=== PATIENT | female | born 1965 | race Caucasian/White ===

== ENCOUNTER 2018-02-11 08:48 | Observation (INO) | payer OTHER ==
[~2018-02-11] VITALS: Ht 167.6 cm; Wt 96.2 kg
[2018-02-11] MEDS ORDERED: ASPIRIN 81 MG CHEW TAB PO ONE (09:15)
[2018-02-11 09:18] LABS: BASOPHILS % 0.6 % (0.0-1.0); EOSINOPHILS # (AUTO) 0.1 (0.0-0.4); EOSINOPHILS % 1.9 % (0.0-6.0); HEMATOCRIT 42.4 % (34.2-44.1); HEMOGLOBIN 14.7 g/dL (12.0-16.0); LYMPHOCYTES # (AUTO) 1.3 (1.0-3.2); LYMPHOCYTES % 27.2 % (18.0-39.1); MEAN CORPUSCULAR HEMOGLOBIN 34.8 pg (28-32); MEAN CORPUSCULAR HGB CONC 34.7 g/dL (31-35); MEAN CORPUSCULAR VOLUME 100.5 fL (81-99); MONOCYTES # (AUTO) 0.3 (0.2-0.8); MONOCYTES % 6.5 % (4.4-11.3); NEUTROPHILS % 63.8 % (38.7-80.0); PLATELET COUNT 162 x10e3/uL (140-360); RED BLOOD COUNT 4.22 x10e6/uL (3.6-5.1); RED CELL DISTRIBUTION WIDTH 13.4 % (11.7-14.4)
[2018-02-11 09:22] LABS: INR 1.09; PROTHROMBIN TIME 13.3 seconds (11.9-14.5)
[2018-02-11 09:23] LABS: PARTIAL THROMBOPLASTIN TIME 26.8 seconds (23.8-35.5)
[2018-02-11 09:31] LABS: ALBUMIN 4.1 g/dL (3.5-5.0); ALBUMIN/GLOBULIN RATIO 1.2 (0.8-2.0); ANION GAP 11.9 mmol/L (8-16); CALCIUM 9.8 mg/dL (8.4-10.2); CREATININE, SERUM 0.98 mg/dL (0.57-1.11); POTASSIUM 3.9 mmol/L (3.5-5.1)
--- NOTE | 2018-02-11 09:55 | Diagnostic Imaging Report ---
PROCEDURE: CHEST SINGLE (PORTABLE) COMPARISON: None. INDICATIONS: CHEST PAIN, COPD FINDINGS: LUNGS: No consolidations or edema. PLEURA: No effusions or pneumothorax. HEART \T\ MEDIASTINUM: The heart is within normal size-limits. BONES \T\ SOFT TISSUES: No acute findings. CONCLUSION: No acute thoracic abnormality. Liang Rush D.O. Dictated by: Liang Rush D.O. on 02/11/2018 at 9:58 Electronically approved by: Liang Rush D.O. on 02/11/2018 at 9:58
[2018-02-11] MEDS ORDERED: NICOTINE 14 MG/EA PATCH TOP STA (11:01)
[2018-02-11 11:27] LABS: BILIRUBIN,URINE NEGATIVE (NEGATIVE); CLARITY,URINE SL CLOUDY (CLEAR); COLOR,URINE YELLOW (YELLOW); KETONES,URINE NEGATIVE (NEGATIVE); LEUKOCYTE ESTERASE ,URINE NEGATIVE (NEGATIVE); NITRITE,URINE NEGATIVE (NEGATIVE); PROTEIN,URINE DIPSTICK NEGATIVE (NEGATIVE); URINE UROBILINOGEN 0.2 mg/dL (0.2 - 1)
[2018-02-11 11:40] LABS: BACTERIA,URINE MODERATE /HPF; EPITHELIAL CELLS,URINE MODERATE /LPF; RBC,URINE 0-5 /HPF (0-5); WBC,URINE (MAN) 0-5 /HPF (0-5)
--- OUTSIDE RECORDS SUMMARY | 2018-02-11 12:31 | XMS REPORT ---
Author Author [facility] Address Unknown Phone Unavailable Care Team Providers Care Admissions Advisor Name Role Phone CAROLINE MATIAS Unavailable Unavailable Problems This patient has no known problems. Allergies, Adverse Reactions, Alerts This patient has no known allergies or adverse reactions. Medications This patient has no known medications. Results Test Description Test Time Test Comments Text Results Atomic Results Result Comments CHEST SINGLE (PORTABLE) [place] [address] Patient Name: LISA HURTADO MR #: [id number] : 1965 Age/Sex: 52/F Req #: [id number] Adm Physician: Ordered by: CAROLINE MATIAS MD Report #: [id number] Location: ER Room/Bed: Procedure: [id number] DX/CHEST SINGLE (PORTABLE) Exam Date: 02/11/18 Exam Time: 919 REPORT STATUS: Signed PROCEDURE: CHEST SINGLE (PORTABLE) COMPARISON: None. INDICATIONS: CHEST PAIN, COPD FINDINGS: LUNGS: No consolidations or edema. PLEURA: No effusions or pneumothorax. HEART T MEDIASTINUM: The heart is within normal size-limits. BONES T SOFT TISSUES: No acute findings. CONCLUSION: No acute thoracic abnormality. Az Cosme D.O. Dictated by: Az Cosme D.O. on 02/11/2018 at 9:58 Electronically approved by: Az Cosme D.O. on 02/11/2018 at 9:58 Dictated By: AZ COSME DO 7 Transcribed By: RONNY on 02/11/18957 COPY TO: CAROLINE MATIAS MD
[2018-02-11] MEDS ORDERED: MORPHINE SULFATE 2 MG/ML SYR IV PRN (13:30)
[2018-02-11] MEDS ORDERED: ONDANSETRON HCL 4 MG ORAL DISINTEGRATING TAB PO PRN (13:45)
[2018-02-11] MEDS ORDERED: SYMBICORT 16010.2 GM INH (14:06)
--- NOTE | 2018-02-11 15:12 | Consultation ---
DATE OF CONSULTATION: February 11, 2018 CARDIOLOGY CONSULTATION REQUESTING PHYSICIAN: Dr. Rogers. REASON FOR CONSULTATION: Chest pain. HISTORY OF PRESENT ILLNESS: This is a 52-year-old woman with a history of COPD, who presents with complaints of chest pain. The patient denies any history of heart disease. She states she was in her usual state of health until 4 weeks ago when she felt like she was coming down with a cold. She described symptoms of weakness and malaise. The following week, she started experiencing dull chest pain. She initially reported no aggravating or alleviating factors. The pain did not radiate. However, today in the ER after administration of morphine, she noted that the pain was worse with deep inspiration. She denied any edema, orthopnea, PND or palpitations otherwise. She does not regularly exercise. REVIEW OF SYSTEMS: Negative except as per HPI. PAST MEDICAL HISTORY: COPD. PAST SURGICAL HISTORY: None. ALLERGIES: PLEASE SEE EMR. MEDICATIONS: Please see medication list. SOCIAL HISTORY: She endorses smoking a pack and a half a day for the last 40 years. She denies any alcohol or illicit drugs. FAMILY HISTORY: Noncontributory. PHYSICAL EXAMINATION VITAL SIGNS: Temperature 98.5 degrees, pulse 56, respiratory rate 18, blood pressure 111/73, oxygen saturation 94%. GENERAL: Obese woman in no acute distress. Awake and alert. HEENT: Normocephalic, atraumatic. Pupils equal, no scleral icterus. NECK: Supple. No thyromegaly or cervical lymphadenopathy, no carotid bruits. LUNGS: Clear to auscultation bilaterally. No wheezes or crackles. CARDIOVASCULAR: Normal rate, regular rhythm. No murmur. Normal S1 and S2. ABDOMEN: Soft, nontender. EXTREMITIES: No edema. NEURO: Nonfocal exam. LABS: WBC 4.63, hemoglobin 14.7, hematocrit 42.4, platelets 162. Sodium 140, potassium 3.9, chloride 105, CO2 27, BUN 6, creatinine 0.98. Troponin 0.006. BNP less than 10. INR 1.09. UA with trace blood and moderate bacteria. CHEST X-RAY: No acute thoracic abnormality. EKG: Normal sinus rhythm. Normal ECG. IMPRESSION 1. Atypical chest pain. 2. Tobacco abuse. RECOMMENDATIONS: Trend cardiac enzymes. Obtain echocardiogram. Given patient's risk factors, ischemic evaluation is warranted with a treadmill nuclear stress test. However, her symptoms are more consistent with pleurisy or pericarditis. Check a CRP. Thank you for this consult. We will continue to follow. Job#: [id number] EV
[2018-02-11 16:16] VITALS: BP 118/66
[2018-02-11] MEDS ORDERED: HYDRALAZINE HCL 20 MG/ML VIAL IV PRN (17:00)
[2018-02-11] MEDS ORDERED: ACETAMINOPHEN 325 MG SUPP PR PRN (17:00)
[2018-02-11] MEDS ORDERED: ACETAMINOPHEN 325 MG TAB PO PRN (17:00)
[2018-02-11 17:06] VITALS: BP 118/66
[2018-02-11 17:14] VITALS: BP 118/66
[2018-02-11] MEDS: ENOXAPARIN SOD INJ 40 MG/0.4 ML SYR SC SCH (17:54)
[2018-02-11] MEDS: METOCLOPRAMIDE HCL 10 MG/2ML VIAL IV SCH (17:54)
[2018-02-11 19:55] VITALS: BP 137/64
[2018-02-12] MEDS: METOCLOPRAMIDE HCL 10 MG/2ML VIAL IV SCH ×4 (00:13→16:54)
[2018-02-12 00:50] VITALS: BP 101/56
[2018-02-12 03:53] LABS: BASOPHILS % 0.6 % (0.0-1.0); EOSINOPHILS # (AUTO) 0.1 (0.0-0.4); EOSINOPHILS % 2.7 % (0.0-6.0); HEMATOCRIT 39.4 % (34.2-44.1); HEMOGLOBIN 13.5 g/dL (12.0-16.0); LYMPHOCYTES # (AUTO) 1.6 (1.0-3.2); LYMPHOCYTES % 48.9 % (18.0-39.1); MEAN CORPUSCULAR HEMOGLOBIN 34.7 pg (28-32); MEAN CORPUSCULAR HGB CONC 34.3 g/dL (31-35); MEAN CORPUSCULAR VOLUME 101.3 fL (81-99); MONOCYTES # (AUTO) 0.3 (0.2-0.8); MONOCYTES % 7.9 % (4.4-11.3); NEUTROPHILS # (AUTO) 1.3 (2.1-6.9); NEUTROPHILS % 39.6 % (38.7-80.0); PLATELET COUNT 150 x10e3/uL (140-360); RED BLOOD COUNT 3.89 x10e6/uL (3.6-5.1); RED CELL DISTRIBUTION WIDTH 13.2 % (11.7-14.4)
[2018-02-12 04:16] LABS: ANION GAP 10.1 mmol/L (8-16); BLOOD UREA NITROGEN 9 mg/dL (7-26); BUN/CREATININE RATIO 10 (6-25); CALCIUM 9.2 mg/dL (8.4-10.2); CARBON DIOXIDE 28 mmol/L (22-29); CHLORIDE 106 mmol/L (98-107); CHOL/HDL RATIO 4.4 (3.0-3.6); CHOLESTEROL 177 MD/DL (0-199); EST GLOMERULAR FILTRATION RATE > 60 ML/MIN (60-); GLUCOSE 90 mg/dL (74-118); HDL CHOLESTEROL 40 MG/DL (40-60); LDL CHOLESTEROL 107 MG/DL (60-130); POTASSIUM 4.1 mmol/L (3.5-5.1); SODIUM 140 mmol/L (136-145); TRIGLYCERIDES 150 MG/DL (0-149)
[2018-02-12 04:23] LABS: CREATINE KINASE MB 0.8 ng/mL (0-5.0)
[2018-02-12 04:25] LABS: B-TYPE NATRIURETIC PEPTIDE2 < 10.0 pg/mL (0-100)
[2018-02-12 04:38] LABS: FREE T4 (FREE THYROXINE) 0.79 ng/dL (0.9-1.8); THYROID STIMULATING HORMONE 8.279 uIU/mL (0.350-4.940)
[2018-02-12 05:00] VITALS: BP 89/54
[2018-02-12 08:00] VITALS: BP 100/60
[2018-02-12] MEDS ORDERED: PANTOPRAZOLE 40 MG 10ML VIAL IV SCH (09:00)
[2018-02-12] MEDS ORDERED: ASPIRIN 325 MG TAB EC PO SCH (09:00)
[2018-02-12 11:34] VITALS: BP 100/60
--- NOTE | 2018-02-12 13:32 | Cardiology Report ---
DATE OF STUDY: February 12, 2018 NUCLEAR STRESS REPORT PROCEDURE TITLE: Rest/stress single isotope SPECT imaging with exercise stress and gated SPECT imaging. INDICATIONS: Chest pain. PROCEDURE: Patient performed treadmill exercise using a Ezra protocol, exercising for 5 minutes 57 seconds to stage 2 and completing an estimated work load of 7 metabolic equivalents (METs). The test was terminated due to fatigue. The heart rate was 76 beats a minute at rest and increased to 142 beats a minute at peak exercise, which was 86% of maximum predicted heart rate. The rest blood pressure was 85/69, increased to 155/70 mmHg, which is a normal response. The patient did not develop any symptoms other than fatigue during the procedure. The resting electrocardiogram demonstrated sinus rhythm. There were no ST segment changes consistent with myocardial ischemia. Myocardial perfusion imaging was performed at rest following the injection of 27.2 mCi of tetrofosmin. At peak pharmacologic effect, the patient was injected with 33.8 mCi of tetrofosmin and exercise was continued for 1 minute. Gated post rest tomographic imaging was performed. FINDINGS: The overall quality of study is fair. Attenuation artifact was present. Left ventricular cavity was noted to be normal size on the rest and stress studies. SPECT images demonstrate homogenous tracer distribution throughout the myocardium. The gated SPECT imaging reveals normal myocardial thickening and wall motion. Left ventricular ejection fraction was calculated to be 59%. IMPRESSION: Normal clinical hemodynamically ECG exercise stress test. Myocardial perfusion imaging is normal. Overall left ventricular systolic function was normal without regional wall motion abnormalities. Job#: [id number] SKYLAR
[2018-02-12] MEDS ORDERED: IBUPROFEN400 MG PO (14:18)
[2018-02-12] MEDS ORDERED: COLCRYS0.6 MG PO (14:19)
[2018-02-12] MEDS ORDERED: IBUPROFEN 400 MG TAB PO PRN ×2 (16:15→16:30)
--- NOTE | 2018-02-12 16:31 | Progress Note ---
DATE: February 12, 2018 CARDIOLOGY PROGRESS NOTE SUBJECTIVE: Patient denies shortness of breath. She reports her chest pain is worsened by lying flat. nuclear stress test. OBJECTIVE VITAL SIGNS: Temperature 98 degrees, pulse 63, respiratory rate 16, blood pressure 100/60, oxygen saturation 95% on room air. GENERAL: Obese woman in no acute distress. Awake and alert. LUNGS: Clear to auscultation bilaterally. No wheezes or crackles. CARDIOVASCULAR: Normal rate, regular rhythm. No murmur. Normal S1 and S2. ABDOMEN: Soft, nontender. EXTREMITIES: No edema. NEUROLOGIC: Nonfocal exam. LABS: WBC 3.29, hemoglobin 13.5, hematocrit 39.4, platelets 150. Sodium 140, potassium 4.1, chloride 106, CO2 28, BUN 9, creatinine 0.9. Troponin 0.009. BNP less than 10. CRP 12.1. TELEMETRY: Normal sinus rhythm. IMPRESSION 1. Atypical chest pain, suspect pericarditis. 2. Tobacco abuse. RECOMMENDATIONS: Patient ruled out for a myocardial infarction with serial cardiac biomarkers. Nuclear stress test was without evidence of ischemia. Given her elevated CMP and recent viral illness, suspect pericarditis. Patient has been started on ibuprofen and colchicine. Consider CTA of the chest to rule out PE or other aortic pathology. Thank you for this consult. We will continue to follow. Job#: [id number] EV
[2018-02-12] MEDS: ENOXAPARIN SOD INJ 40 MG/0.4 ML SYR SC SCH (16:53)
[2018-02-12] MEDS ORDERED: COLCHICINE 0.6 MG TAB PO SCH (17:00)
[2018-02-12] MEDS ORDERED: LEVOTHYROXINE50 MCG PO (17:08)
[2018-02-12] MEDS ORDERED: ASPIR 8181 MG PO (17:08)
[2018-02-12] MEDS ORDERED: PRAVASTATIN SOD10 MG PO (17:08)
--- NOTE | 2018-02-12 18:08 | History and Physical ---
PRIMARY CARE PHYSICIAN: Dr. Harris. CHIEF COMPLAINT: Chest pain. HISTORY OF PRESENT ILLNESS: A 52-year-old woman with a history of COPD and cigarette use who has been having chest discomfort in the substernal region and epigastric region. She came to the hospital and underwent stress test, which was negative. The patient smokes a pack of cigarettes per day. Counseled on cigarette cessation. Currently, she is chest pain free. PAST MEDICAL HISTORY: COPD. Cigarette use. PAST SURGICAL HISTORY: None. ALLERGIES: PER ELECTRONIC MEDICAL RECORD. FAMILY AND SOCIAL HISTORY: The patient is single. She has one child. No alcohol or illicits. She smokes one pack of cigarettes per day. MEDICATIONS: Per electronic medical records. REVIEW OF SYSTEMS: Denies any dizziness. PHYSICAL EXAMINATION VITAL SIGNS: Reviewed. GENERAL APPEARANCE: A tired-appearing woman resting in the bed. HEENT: Anicteric. Pupils responsive to light. No oral lesions. CARDIOVASCULAR: Normal S1 and S2. LUNGS: Moderate breath sounds. ABDOMEN: Soft and nontender. Nondistended. EXTREMITIES: There is no edema or calf tenderness. NEUROLOGIC: Alert and oriented x3. Moving all extremities. SKIN: Dry. PSYCHIATRIC: Flat affect. LABS: Reviewed. MEDICATIONS: Reviewed. ASSESSMENT: A 52-year-old woman. 1. Atypical chest pain. 2. Hypothyroidism. 3. Cigarette abuse. 4. Chronic obstructive pulmonary disease. 5. Newly diagnosed hypothyroidism. 6. Hyperlipidemia. PLAN: 1. She is status post stress test which was negative. 2. Will start low-dose statin. 3. Will start on aspirin 81 mg as well. 4. Counseled on cigarette cessation. 5. atherosclerosis. 6. She has a nicotine patch on now. 7. COPD management. Will hold medication regimen. 8. Lovenox for deep venous thrombosis prophylaxis. 9. Protonix for GI prophylaxis. DISPOSITION: Discharge planning to home. Will discharge her on Pepcid 20 mg twice a day as well. Job#: [id number]
--- NOTE | 2018-02-12 18:14 | Discharge Summary ---
PRINCIPAL DIAGNOSES: 1. Atypical chest pain. 2. Hypothyroidism. 3. Cigarette abuse. 4. Chronic obstructive pulmonary disease. 5. Hyperlipidemia. SECONDARY DIAGNOSIS: Cigarette use. CHIEF COMPLAINT: Chest pain. HISTORY OF PRESENT ILLNESS: This is a 52-year-old woman with chest pain. Please refer to H and P for further details. HOSPITAL COURSE: The patient was found to have atypical chest pain, underwent stress testing which was negative. She has hypothyroidism, newly diagnosed, started on a low-dose levothyroxine. Referred to endocrinology as outpatient. Cigarette abuse. I counseled the patient on nicotine patch. The patient does have COPD, hyperlipidemia. Started on anticoagulation medicine. She is currently appropriate for discharge, will follow up. DISCHARGE MEDICATION: Per electronic medical record. CONDITION ON DISCHARGE: Stable. DISCHARGE LOCATION: Home. FOLLOWUP: 1. With primary care doctor in [address] Culp and Dr. Crowell in [address] Aquino of endocrinology in 1 week. NOÉ DURHAM MD Job#: [id number] GE
[2018-02-13] MEDS ORDERED: LEVOTHYROXINE SODIUM 25 MCG TABLET PO SCH (06:00)
== END 2018-02-12 17:47 | disposition home or self-care (01) ==
LOC: ER 08:55 → ERHOLD 12:30 → IMCU 15:02
PROVIDERS: ADMIT Internal Medicine; ATTEND Internal Medicine
DX: R07.89 Other chest pain (principal); J44.9 Chronic obstructive pulmonary disease, unspecified; Z72.0 Tobacco use; E03.9 Hypothyroidism, unspecified; E78.5 Hyperlipidemia, unspecified
CPT/HCPCS: 36415 ×2; 71045; 78452; 80048; 80053; 80061; 81001; 82550 ×2; 82553 ×2; 83036; 83735; 83880 ×2; 84439; 84443; 84484 ×2; 85025 ×2; 85610; 85730; 86140; 87086; 93005; 93017; 93306; 99284; A9502; G0378 ×2; J1650 ×2; J2270; J2765 ×2